=== PATIENT | female | born 1985 | race Caucasian/White ===

== ENCOUNTER → 2018-03-10 | Outpatient (CLI) | payer OTHER ==
[2018-03-10 13:35] LABS: BASO % 0.3 % (0.0-1.0); EOS # 0.1 10^3/uL (0.0-0.50); EOS % 1.1 % (0.0-3.0); IMMATURE GRANULOCYTE % 0.3 % (0-3.0); LYMPH # 1.5 10^3/uL (1.5-4.5); LYMPH % 14.1 % (24.0-44.0); MEAN CORPUSCULAR HGB CONC 34.2 g/dl (32.0-36.5); MEAN CORPUSCULAR VOLUME 90.5 fl (80.0-96.0); MONO # 0.5 10^3/uL (0.0-0.8); MONO % 4.7 % (0.0-5.0); NEUTROPHILS # 8.7 10^3/uL (1.8-7.7); NEUTROPHILS % 79.5 % (36.0-66.0); PLATELET COUNT, AUTOMATED 327 10^3/uL (150-450); RED CELL DISTRIBUTION WIDTH 12.2 % (11.5-14.5); WHITE BLOOD COUNT 10.9 10^3/uL (4.0-10.0)
[2018-03-10 14:53] LABS: HEPATITIS C VIRUS ABY INDEX 0.1 INDEX (<0.8)
[2018-03-10 14:53] LABS: HBsAg Prenatal NEGATIVE (NEGATIVE); HIV 1&2 SCREEN CENTAUR NEGATIVE (NEGATIVE); RUBELLA IgG QUALITATIVE IMMUNE (IMMUNE)
[2018-03-10 15:20] LABS: CHLAMYDIA DNA AMPLIFICATION NEGATIVE (NEGATIVE); GC DNA AMPLIFICATION NEGATIVE (NEGATIVE)
== END ==
LOC: M SMT 09:49
DX: Z36.89 Encounter for other specified antenatal screening (principal)
CPT/HCPCS: 86762

== ENCOUNTER → 2018-04-17 | Outpatient (CLI) | payer OTHER ==
--- NOTE | 2018-04-17 20:00 | REP ---
Clinical: Anatomical evaluation. Comparison: None . Findings: Examination demonstrates a single live intrauterine in variable presentation. motion is identified by technologist. Placenta is noted posterior fundal and grade grade zero without evidence for placenta previa or abruption. Amniotic fluid volume is normal. Cervix measures 4.4 cm in length and appears closed. No evidence for nuchal cord. Gestational age by LMP 18 weeks 2 days with JOAQUIN 09/16/2018 . Gestational age by current measurements the 18 weeks to date with JOAQUIN is 09/16/2018 . FHR equals 156 beats per minute. BPD 4.2 cm 18 weeks 5 days HC 15.1 cm 18 weeks 1 day AC 12.3 cm 18 weeks 0 days FL 2.7 cm 18 weeks 2 days HL 2.6 cm 18 weeks 2 days HC/AC ratio 1.23 Estimated weight 224 grams ( 39th percentile). Anatomical assessment demonstrates normal structures including cranium, choroid plexus, cavum, cerebellum/posterior fossa, facial features, lungs, four-chamber heart/ventricular outflow tracts, diaphragm, stomach, cord insertion/three-vessel cord, bladder, spine, and upper extremities. Limited evaluation of the kidneys and lower extremities due to positioning. Impression: 1. Single live intrauterine in variable presentation demonstrating appropriate interval growth. 2. Limited evaluation of the kidneys and lower extremities due to positioning. Remainder of the anatomical assessment is complete and normal. Electronically Signed by Bhavik Doyle MD 04/17/2018 07:51 P
== END ==
LOC: M RAD 09:04
PROVIDERS: ATTEND Obstetrics & Gynecology
DX: Z36.89 Encounter for other specified antenatal screening (principal); Z3A.18 18 weeks gestation of pregnancy

== ENCOUNTER → 2018-05-08 | Outpatient (CLI) | payer OTHER ==
--- NOTE | 2018-05-08 17:38 | REP ---
Obstetric ultrasonography for anatomy follow-up: On the comparison study dated 04/17/2018 the kidneys and lower extremities were not optimally visualized. The remainder of the anatomy was unremarkable. The study today is performed for follow up of the kidneys and lower extremities. There is a single intrauterine gestation. position is variable. heart rate is 149 beats per minute. The placenta is fundal. There is no previa or abruptio. The placenta is grade 1 maturity. The amniotic fluid volume subjectively is normal. The cervix measures 3.2 cm length. Gestational age by the ultrasound today is 21-week 6 days/JOAQUIN of 09/12/2018. Gestational age by the first ultrasound is 21 weeks 2 days/JOAQUIN of 09/16/2018. Gestational age by LMP is 21 weeks 2 days/JOAQUIN of 09/16/2018. weight is 436 grams (0 pounds, 15 ounces). This is the 56th percentile for 21 weeks 2 days. The kidneys are adequately demonstrated and are unremarkable. The lower extremities are adequately demonstrated and unremarkable. The spine is suboptimally demonstrated today, however, was adequately demonstrated previously and was unremarkable. The remainder of the anatomy is unremarkable as previously. No anomalies are identified. Electronically Signed by Abner Gonzalez MD 05/08/2018 05:29 P
== END ==
LOC: M RAD 15:54
PROVIDERS: ATTEND Advanced Practice Midwife
DX: Z34.82 Encounter for supervision of other normal pregnancy, second trimester (principal); Z36.89 Encounter for other specified antenatal screening; Z3A.21 21 weeks gestation of pregnancy

== ENCOUNTER → 2018-06-15 | Outpatient (CLI) | payer OTHER ==
[2018-06-15 14:51] LABS: BASO % 0.1 % (0.0-1.0); EOS # 0.1 10^3/uL (0.0-0.50); EOS % 1.1 % (0.0-3.0); HEMATOCRIT 34.1 % (36.0-47.0); HEMOGLOBIN 11.1 g/dl (12.0-15.5); LYMPH # 1.4 10^3/uL (1.5-4.5); LYMPH % 11.5 % (24.0-44.0); MEAN CORPUSCULAR HEMOGLOBIN 30.9 pg (27.0-33.0); MEAN CORPUSCULAR HGB CONC 32.6 g/dl (32.0-36.5); MONO # 0.5 10^3/uL (0.0-0.8); MONO % 4.2 % (0.0-5.0); NEUTROPHILS # 10.3 10^3/uL (1.8-7.7); NEUTROPHILS % 82.1 % (36.0-66.0); PLATELET COUNT, AUTOMATED 299 10^3/uL (150-450); RED BLOOD COUNT 3.59 10^6/uL (4.00-5.40); WHITE BLOOD COUNT 12.6 10^3/uL (4.0-10.0)
== END ==
LOC: M SMT 08:03
PROVIDERS: ATTEND Specialist
DX: Z34.82 Encounter for supervision of other normal pregnancy, second trimester (principal)

== ENCOUNTER → 2018-06-20 | Outpatient (CLI) | payer OTHER | LOC: M LAB 07:42 | PROVIDERS: ATTEND Specialist | DX: Z34.82 Encounter for supervision of other normal pregnancy, second trimester (principal); Z36.89 Encounter for other specified antenatal screening ==

== ENCOUNTER → 2018-08-17 | Outpatient (REF) | payer OTHER | LOC: M LAB REF 17:23 | PROVIDERS: ATTEND Obstetrics & Gynecology | DX: Z34.03 Encounter for supervision of normal first pregnancy, third trimester (principal); Z3A.00 Weeks of gestation of pregnancy not specified ==

== ENCOUNTER → 2018-09-08 | Outpatient (CLI) | payer OTHER ==
[~2018-09-08] MED LIST: ACET-683 PO; IBUP80TA PO; PRENTAB9 PO
[2018-09-08 17:08] LABS: BASO % 0.3 % (0.0-1.0); EOS # 0.1 10^3/uL (0.0-0.50); EOS % 1.1 % (0.0-3.0); HEMATOCRIT 33.9 % (36.0-47.0); HEMOGLOBIN 11.5 g/dl (12.0-15.5); LYMPH # 1.8 10^3/uL (1.5-4.5); LYMPH % 15.6 % (24.0-44.0); MEAN CORPUSCULAR HEMOGLOBIN 30.5 pg (27.0-33.0); MEAN CORPUSCULAR HGB CONC 33.9 g/dl (32.0-36.5); MEAN CORPUSCULAR VOLUME 89.9 fl (80.0-96.0); MONO # 0.7 10^3/uL (0.0-0.8); MONO % 6.3 % (0.0-5.0); NEUTROPHILS # 8.6 10^3/uL (1.8-7.7); NEUTROPHILS % 75.9 % (36.0-66.0); PLATELET COUNT, AUTOMATED 201 10^3/uL (150-450); RED BLOOD COUNT 3.77 10^6/uL (4.00-5.40); WHITE BLOOD COUNT 11.3 10^3/uL (4.0-10.0)
[2018-09-08 17:31] LABS: ALT/SGPT 17 U/L (12-78); BILIRUBIN,TOTAL 0.2 MG/DL (0.2-1.0); CREATININE FOR GFR 0.69 MG/DL (0.55-1.30); GLOMERULAR FILTRATION RATE > 60.0 (>60); LDH LACTATE DEHYDROGENASE 182 U/L (84-246); URIC ACID 4.5 MG/DL (2.6-6.0)
== END ==
LOC: M LAB 16:20
PROVIDERS: ATTEND Advanced Practice Midwife
DX: Z34.03 Encounter for supervision of normal first pregnancy, third trimester (principal)

== ENCOUNTER 2018-09-09 08:25 | Inpatient (IN) | payer OTHER ==
[2018-09-09] VITALS (33 sets, daily range): BP systolic 101–194; BP diastolic 64–111
[~2018-09-09] VITALS: Ht 160 cm; Wt 75.9 kg
[2018-09-09] MEDS ORDERED: PRENTAB9 PO (08:48)
[2018-09-09 09:30] LABS: HEMOGLOBIN 12.1 g/dl (12.0-15.5); MEAN CORPUSCULAR HEMOGLOBIN 31.3 pg (27.0-33.0); MEAN CORPUSCULAR HGB CONC 34.6 g/dl (32.0-36.5); MEAN CORPUSCULAR VOLUME 90.7 fl (80.0-96.0); PLATELET COUNT, AUTOMATED 203 10^3/uL (150-450); RED BLOOD COUNT 3.86 10^6/uL (4.00-5.40); WHITE BLOOD COUNT 9.7 10^3/uL (4.0-10.0)
[2018-09-09] MEDS: miSOPROStol 50 MCG 1/2 TAB (S0191) SL SCH ×2 (09:44→14:11)
--- NOTE | 2018-09-09 09:53 | HPE ---
DATE OF ADMISSION: 09/09/2018 A 33-year-old (G) 1, para (P) 0 female, 39-0/7 weeks gestation by last menstrual period (LMP) consistent with 10 week ultrasound, estimated date of confinement (EDC) of 01/16/2019, presents for labor induction due to gestational hypertension. She denies contraction or vaginal bleeding. COURSE: The patient initiated care at 10 weeks gestation on 02/24/2018. Her first trimester blood pressure was 128/80. Weight was 149 pounds. At 38 weeks gestation she felt elevated blood pressure of 140/92 and subsequently 146/88. After repeated elevated blood pressures decision was made to proceed with induction. MEDICAL HISTORY: Noncontributory. SURGICAL HISTORY: Excision of enlarged lymph node from neck. ALLERGIES: None. SOCIAL HISTORY: Patient is . She denies cigarettes, alcohol or drug use. She lives in [place]. FAMILY HISTORY: Noncontributory. PHYSICAL EXAMINATION: Blood pressure 143/96, pulse 84. Afebrile. She in no apparent distress. Head and neck exam is normal. Lungs: Clear. Heart: Regular rate and rhythm. Abdomen: Nontender and gravid. heart tones: Category 1. Sterile vaginal exam: 1 cm, 75% effaced, -3 posterior soft vertex. Extremities: Nontender. LABORATORY: Blood type O positive, rubella immune, RPR nonreactive. Group B strep positive 08/17/2018. ASSESSMENT: 33-year-old, 1, para 0 female at 39-0/7 weeks gestation with gestational hypertension presents for induction. PLAN: The patient is admitted on 09/09/2018. Antibiotics for GBS positive status.
[2018-09-09] MEDS ORDERED: PENICILLIN G POTASSIUM IV 5 MU in D5W MINI-BAG PLUS 100 ML IV STA (13:52)
[2018-09-09] MEDS: PENICILLIN G POTASSIUM IV 2.5 MU in APPROPRIATE DILUENT 1 EA IV SCH ×2 (18:01→21:53)
[2018-09-09] MEDS ORDERED: FENTANYL 2MCG/ML ROPIVACAINE 0.2% IN 0.9% NACL 100ML IVBAG As Ordered ONE (20:04)
[2018-09-09] MEDS ORDERED: EPIDURAL/PCA KEYS XX PRN (20:38)
[2018-09-09] MEDS ORDERED: ePHEDrine SULFATE 25 MG/5 ML(5MG/ML) SYRINGE IV PRN (20:38)
[2018-09-09] MEDS ORDERED: EPIDURAL COMMENT XX SCH (20:38)
[2018-09-09] MEDS ORDERED: NALOXONE INJ 0.4 MG/1 ML VIAL (J2310) IV PRN (20:38)
[2018-09-09] MEDS ORDERED: ONDANSETRON 4MG/2ML VIAL (J2405) IV PRN (20:38)
[2018-09-09] MEDS ORDERED: FENTANYL/ROPIVACAINE/NACL BAG 100 ML EPIDURAL SCH (20:38)
[2018-09-09] MEDS ORDERED: LACTATED RINGER'S 1000 ML IV PRN (20:38)
[2018-09-09] MEDS ORDERED: diphenhydrAMINE INJ 50MG/ML VIAL (J1200) IV PRN (20:38)
[2018-09-09] MEDS ORDERED: REFRIGERATOR IV KEYS XX PRN (20:38)
[2018-09-10] VITALS (9 sets, daily range): BP systolic 116–151; BP diastolic 63–92
[2018-09-10] MEDS ORDERED: OXYTOCIN 30 UNITS IN 0.9% NaCl 500ML IV BAG (J2590) As Ordered ONE (01:03)
[2018-09-10] MEDS ORDERED: ACETAMINOPHEN 500 MG TAB PO PRN (04:15)
[2018-09-10] MEDS ORDERED: DIBUCAINE 1% OINTMENT 30GM TOP PRN (04:15)
[2018-09-10] MEDS ORDERED: RHOGAM 300 MCG (1500 IU) INJ (J2790) IM SCH (04:15)
[2018-09-10] MEDS ORDERED: METHYLERGONOVINE MALEATE 0.2 MG TAB PO PRN (04:15)
[2018-09-10] MEDS ORDERED: MEASLES,MUMPS,RUBELLA VACCINE INJ (MMR-II) (90707) SC SCH (04:15)
[2018-09-10] MEDS ORDERED: DOCUSATE SODIUM 100 MG CAP PO PRN (04:15)
[2018-09-10] MEDS ORDERED: OXYTOCIN DRIP 30 UNITS in APPROPRIATE DILUENT 1 EA IV ONE (04:15)
[2018-09-10] MEDS ORDERED: ONDANSETRON 4MG/2ML VIAL (J2405) IV PRN (04:15)
[2018-09-10] MEDS: PRENATAL VITAMINS CHEWABLE TABLET PO SCH (10:05)
[2018-09-10] MEDS: IBUPROFEN 800 MG TAB PO PRN ×2 (10:06→18:52)
[2018-09-11 06:05] VITALS: BP 128/64
[2018-09-11] MEDS: PRENATAL VITAMINS CHEWABLE TABLET PO SCH (08:03)
--- NOTE | 2018-09-11 09:45 | DN ---
DATE OF DELIVERY: 09/10/2018 PREDELIVERY DIAGNOSIS: 39 weeks 0 days, gestational hypertension, induction. POSTDELIVERY DIAGNOSIS: Delivered. PROCEDURE: Spontaneous vaginal delivery. ASSISTANT RESTAURANT GENERAL MANAGER: Dr. Mario Ramírez ANESTHESIA: Epidural. ESTIMATED BLOOD LOSS: 300 mL. FINDINGS: 7 pound 7 ounce male, Apgars 8 and 9. DELIVERY SUMMARY: After a 90 minute second stage, the patient had spontaneous delivery of a 7 pound 7 ounce male , Apgars 8 and 9, under epidural anesthesia. There was no nuchal cord. The shoulders delivered with ease. The was handed to the mother. The cord was doubly clamped and cut. The placenta delivered spontaneously and appeared to be intact. The patient received IV Pitocin immediately after delivery of the placenta. A second degree perineal laceration was repaired with #2-0 chromic in the usual fashion. Normal rectal exam was performed at the end of the procedure. Sponge and needle counts were correct.
[2018-09-11] MEDS ORDERED: IBUP80TA PO (10:30)
[2018-09-11] MEDS ORDERED: ACET-683 PO (10:30)
== END 2018-09-11 13:05 | disposition home or self-care (01) | DRG 807 ==
LOC: M LDI 08:25 → M OBS 09-10 06:05
PROVIDERS: ADMIT Specialist; ATTEND Specialist
PROC: 3E0P7GC Introduction of Other Therapeutic Substance into Female Reproductive, Via Natural or Artificial Opening (ICD-10-PCS; 2018-09-09)
PROC: 10E0XZZ Delivery of Products of Conception, External Approach (ICD-10-PCS; principal; 2018-09-10)
PROC: 0KQM0ZZ Repair Perineum Muscle, Open Approach (ICD-10-PCS; 2018-09-10)
DX: O13.4 Gestational [pregnancy-induced] hypertension without significant proteinuria, complicating childbirth (principal); Z37.0 Single live birth; O99.824 Streptococcus B carrier state complicating childbirth; Z3A.39 39 weeks gestation of pregnancy; O70.1 Second degree perineal laceration during delivery

== ENCOUNTER → 2019-11-06 | Outpatient (REF) | payer OTHER | LOC: M SFHCWAGY 11:28 | PROVIDERS: ATTEND Specialist | DX: Z12.4 Encounter for screening for malignant neoplasm of cervix (principal) ==

== ENCOUNTER → 2020-12-23 | Outpatient (REF) | payer OTHER | LOC: M SFHCWAGY 17:59 | PROVIDERS: ATTEND Specialist | DX: Z01.419 Encounter for gynecological examination (general) (routine) without abnormal findings (principal) ==